=== PATIENT | female | born 1950 | race Two or more races ===

== ENCOUNTER 2018-10-20 08:30 | Day surgery (SDC) | payer MEDICARE, OTHER ==
[~2018-10-20] VITALS: Ht 162.6 cm; Wt 81.7 kg
[~2018-10-20 08:30] MED LIST: ATOR10 PO; CYCL10 PO; DIAZ5 PO; DOCU100 PO; ESCI20 PO; ESCITALOPRAM OX20 MG PO; GABA300 PO; GABA600 PO; HYDACE10B PO; HYDCOR2.5C PR; LOSA50 PO; LOSARTAN-HCTZ1 EACH PO; LOSHYD PO; Norco 10-325 T1 EACH PO; OMEPRAZOLE MAGN20 MG PO; TYLENOL PM; ZOLP10 PO
--- NOTE | 2018-10-20 09:43 | NUR ---
Ambulatory in Day Surgery WITH A LIMP AND HOLDING LLE STRAIGHT WITH. PT HAS METAL UP AND DOWN SPINE AND IN CRANIUM. SHE ALSO HAS METAL IN L KNEE AND R ANKLE. PT HAS FACIAL DROOP TO R SIDE OF FACE. PT STATES THEY DON'T KNOW IF SHE HAD A STROKE OR NOT, THE ONLY THING THAT BOTHERS HER IS TRYING TO KEEP HER MOUTH CLASED. PT STATES SHE DOESN'T FEEL LIKE SHE HAS A DISABILITY FROM IT. History, Chart, Medications and Allergies reviewed before start of procedure.Lungs clear T/O to Auscultation. Patient confirms NPO status and agrees with scheduled surgery. BELONGIGNS PLACED UNDER BED.
--- NOTE | 2018-10-20 10:25 | NUR ---
ASSUMED CARE OF PATIENT FOR TERI Jeronimo RN. SHAGGER REPORT COMPLETED AT BEDSIDE WITH INOCENTE MALLOY. PATIENT UP FOR UNMEASURED VOID.
--- NOTE | 2018-10-20 12:57 | NUR ---
Patient up to Ambulate independently. Gait steady. Patient States Post-Procedure ride home has been arranged. Discharge instructions reviewed with patient. Patient verbalizes understanding. Copy given to patient to take home. Discharged via wheelchair to private car for ride home.
== END 2018-10-20 23:59 | disposition home or self-care (01) ==
LOC: ORSCMMR 08:30 → ORD 10:00 → ORSCMMR 11:00
PROVIDERS: Surgery
PROC: 06BY0ZC Excision of Hemorrhoidal Plexus, Open Approach (ICD-10-PCS; principal; 2018-10-20 11:00)
DX: K64.2 Third degree hemorrhoids (principal); K64.4 Residual hemorrhoidal skin tags; I10 Essential (primary) hypertension; I25.10 Atherosclerotic heart disease of native coronary artery without angina pectoris; G47.33 Obstructive sleep apnea (adult) (pediatric); Z79.899 Other long term (current) drug therapy
CPT/HCPCS: 88304; J2250; J2405; J3010; J7120

== ENCOUNTER 2019-01-12 10:00 | Day surgery (SDC) | payer MEDICARE, OTHER ==
[~2019-01-12] VITALS: Ht 162.6 cm; Wt 85.8 kg
--- NOTE | 2019-01-12 10:37 | NUR ---
01/12/19 1037 Khushbu Alex BLOOD DRAWN AND ANTICOAG ADDED FOR PRP, DELIVERED TO OR TO BE SPUN.
--- NOTE | 2019-01-12 13:29 | NUR ---
01/12/19 1328 Bere Welsh BRUISE NOTED ON THE LEFT UPPER ARM AT THE LEVEL OF THE BICEPS
--- NOTE | 2019-01-12 16:17 | NUR ---
01/12/19 1617 Daina Parker 1615 REPORT TO [email or web address]
== END 2019-01-12 17:15 | disposition home or self-care (01) ==
LOC: ORSCSDS 10:00
PROVIDERS: Orthopaedic Surgery
PROC: 0RNK4ZZ Release Left Shoulder Joint, Percutaneous Endoscopic Approach (ICD-10-PCS; principal; 2019-01-12 11:45)
PROC: 0RBK4ZZ Excision of Left Shoulder Joint, Percutaneous Endoscopic Approach (ICD-10-PCS; principal; 2019-01-12 11:45)
PROC: 0PBB4ZZ Excision of Left Clavicle, Percutaneous Endoscopic Approach (ICD-10-PCS; principal; 2019-01-12 11:45)
PROC: 0LS24ZZ Reposition Left Shoulder Tendon, Percutaneous Endoscopic Approach (ICD-10-PCS; principal; 2019-01-12 11:45)
PROC: 0LQ24ZZ Repair Left Shoulder Tendon, Percutaneous Endoscopic Approach (ICD-10-PCS; principal; 2019-01-12 11:45)
DX: M75.122 Complete rotator cuff tear or rupture of left shoulder, not specified as traumatic (principal); M75.42 Impingement syndrome of left shoulder; M19.012 Primary osteoarthritis, left shoulder; M75.22 Bicipital tendinitis, left shoulder; I10 Essential (primary) hypertension; G47.33 Obstructive sleep apnea (adult) (pediatric); Z79.899 Other long term (current) drug therapy
CPT/HCPCS: C1713; J0171; J0330; J0690; J2250; J2370; J2704; J2795; J3010; J7120

== ENCOUNTER 2019-07-28 06:27 | Day surgery (SDC) | payer MEDICARE, OTHER ==
[~2019-07-28] VITALS: Ht 162.6 cm; Wt 84.0 kg
[~2019-07-28 06:27] MED LIST changes: +AMLO5 PO; +Isosorbide Mono30 MG PO; +NITR.4SL SL
--- NOTE | 2019-07-28 10:36 | NUR ---
Pt sleeping post medication administration. Right groin site tender. IV infusing at 100/hr, ns left forearm.
--- NOTE | 2019-07-28 11:00 | NUR ---
2 cc air removed from tr-band legs slightly elevated for groin pain. Pain 4-10 at this time.
--- NOTE | 2019-07-28 11:15 | NUR ---
day Avelar RN reveiwed sites.
--- NOTE | 2019-07-28 11:20 | NUR ---
ASSUMED CARE OF PT. PT IS ALERT AND ORIENTED, PLEASENT AND COOPERATIVE. PT REPORTS DISCOMFORT AT R RADIAL AND R GROIN SITE 3/10; BUT MUCH IMPROVED AFTER MEDICATION. PT DENIES SOB OR NAUSEA. MONITOR SB 50'S, B/P 128/60, SPO2 93% RA. R RADIAL SITE NO SWELLING/HEMATOMA, TR BAND IN PLACE. R GROIN SITE NO SWELLING/HEMATOMA, FRANCOIS DRSG C,D,I; RLE: 1+ PULSES X 2.
--- NOTE | 2019-07-28 12:05 | NUR ---
PT REPORTS SHE IS COMFORTABLE. TR BAND FULLY DEFLATED, R RADIAL SITE UNCHANGED. PT'S HOB ELEVATED, R GROIN SITE REMAINS UNCHANGED. PT'S HERE TO VISIT, ATTENTIVE.
--- NOTE | 2019-07-28 13:39 | NUR ---
PT AMB TO BATHROOM, GAIT STEADY. R RADIAL AND R GROIN STIE UNCHANGED AFTER ACTIVITY. REPORT TO INOCENTE LUCERO.
--- NOTE | 2019-07-28 14:50 | NUR ---
DISCHARGE PT REMAINED A&OX3 DURING RECOVERY AND STATED HER PAIN LEVEL WAS AT A TOLERABLE LEVEL WHEN LEAVING 12/11. R RADIAL SITE-TR BAND REMOVED WITH CLOTH DOT AND WHITE BOARD IN PLACE-CDI NO HEMATOMA NOTED. R GROIN SITE-CDI NO HEMATOMA NOTED. IV DC'D WITH TIP IN TACT. PT ABLE TO DRESS SELF WITH ASSISTANCE FROM SPOUSE. DISCHARGE PAPERWORK GONE OVER WITH PT AND SPOUSE. PT AND SPOUSE VERBALLY STATED THE UNDERSTANDING OF THE DISCHARGE EDUCATION AND DENIED ANY QUESTIONS AT THIS TIME. PT WHEELED OUT BY QUANG Cheema RN.
== END 2019-07-28 14:45 | disposition home or self-care (01) ==
LOC: MHTC 06:27
DX: I25.10 Atherosclerotic heart disease of native coronary artery without angina pectoris (principal); I10 Essential (primary) hypertension; E78.5 Hyperlipidemia, unspecified; G47.33 Obstructive sleep apnea (adult) (pediatric); Z91.030 Bee allergy status; Z79.899 Other long term (current) drug therapy
CPT/HCPCS: 93005; 93010; 93454; 99152; 99153; A9270-GY; C1769; C1894; J1644; J2250; J3010; J7030; Q9967

== ENCOUNTER 2020-09-12 12:39 | Day surgery (SDC) | payer MEDICARE, OTHER ==
[~2020-09-12] VITALS: Ht 162.6 cm; Wt 85.3 kg
[~2020-09-12 12:39] MED LIST changes: +ALBU90OI INH; +ASPI81CH PO; +ASPIR 8181 M1 PO; +HAIR, SKIN AND1 EAC3 PO; +Imdur-ER60 MG PO; +OXYC5 PO; +PANT40 PO; +PROM25 PO; +TELM40 PO; +TIZA4 PO; +XOPENEX HFA15 GM INH
== END 2020-09-12 14:20 | disposition home or self-care (01) ==
LOC: ORSCSDS 12:39
DX: K21.9 Gastro-esophageal reflux disease without esophagitis (principal); I10 Essential (primary) hypertension; I25.10 Atherosclerotic heart disease of native coronary artery without angina pectoris; F32.9 Major depressive disorder, single episode, unspecified; G47.33 Obstructive sleep apnea (adult) (pediatric); J45.909 Unspecified asthma, uncomplicated; Z79.82 Long term (current) use of aspirin; Z79.899 Other long term (current) drug therapy
CPT/HCPCS: 88305; 88342; J2704; J7120

== ENCOUNTER → 2022-02-25 | Outpatient (CLI) | payer MEDICARE, OTHER ==
[~2022-02-25] MED LIST changes: +AMOCLA875 PO
== END | disposition home or self-care (01) ==
LOC: LAB 08:14 → LAB SHORT 08:14
DX: C44.311 Basal cell carcinoma of skin of nose (principal)
CPT/HCPCS: 88305

== ENCOUNTER 2022-07-20 08:30 | Day surgery (SDC) | payer MEDICARE, OTHER ==
[~2022-07-20] VITALS: Ht 162.6 cm; Wt 88.8 kg
[~2022-07-20 08:30] MED LIST changes: +Lipitor10 MG PO; +MELO7.5 PO
--- NOTE | 2022-07-20 17:55 | NUR ---
SHIFT SUMMARY S/P R PAMELA PATIENT [id number], PAINFUL ON ARRIVAL MEDICATED PER EMAR, PT REPORTS PAIN GREATLY IMPROVED. SHE IS CURRENTLY SITTING UP IN BED EATING DINNER. PT IS CURRENTLY AMBULATING TO THE BATHROOM WITH FWW AND GB. FULL SENSATION IN EXTREMETIES. PLAN IS TO WORK WITH THERAPY IN THE MORNING.
[2022-07-21 04:52] LABS: BASOPHILS ABSOLUTE AUTO 0.01 K/mm3 (0.00-0.23); BASOPHILS PERCENT AUTO 0 % (0-2); EOSINOPHILS PERCENT AUTO 0 % (0-6); Hematocrit 28.4 % (33.0-51.0); Hemoglobin 9.5 g/dL (11.5-16.0); IMMATURE GRAN ABSOLUTE AUTO 0.09 K/mm3 (0.00-0.10); IMMATURE GRAN PERCENT AUTO 1 % (0-1); LYMPHOCYTES ABSOLUTE AUTO 1.81 K/mm3 (0.84-5.20); LYMPHOCYTES PERCENT AUTO 13 % (21-46); MONOCYTES ABSOLUTE AUTO 1.13 K/mm3 (0.16-1.47); MONOCYTES PERCENT AUTO 8 % (4-13); Mean Corpuscular HGB 30.1 pg (26.0-34.0); Mean Corpuscular HGB Conc 33.5 g/dL (31.5-36.5); Mean Corpuscular Volume 90 fL (80-100); Mean Platelet Volume 10.8 fL (9.1-12.4); NEUTROPHILS ABSOLUTE AUTO 11.27 K/mm3 (1.96-9.15); NEUTROPHILS PERCENT AUTO 79 % (41-73); Platelet Count 199 K/mm3 (150-400); RDW Coefficient Variation 13.6 % (11.7-14.2); RDW Standard Deviation 44.7 fL (35.1-46.3); Red Blood Cell Count 3.16 M/mm3 (3.80-5.20); White Blood Cell Count 14.31 K/mm3 (4.00-11.30)
--- NOTE | 2022-07-21 05:04 | NUR ---
POD1 FOR A RIGHT TOTAL HIP. SENSATION AND CIRCULATION IS IN TACT. PRIMEO DRESSING IS C/D/I. VSS. PT SLEPT WELL T/O THE NIGHT. AMBULATED TO THE BATHROOM MULTIPLE TIMES T/O THE SHIFT TO VOID. NOT PASSING FLATTUS BUT TOLLERATING PO INTAKE. PAIN CONTROLLED WITH OXY AND SCHEDULED MEDICATIONS. PLAN FOR PT TO WORK WITH PT TODAY BEFORE D/C HOME. 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
[2022-07-21 05:45] LABS: Bun/Creatinine Ratio 21.7 (12.0-20.0); Calcium, Blood 8.4 mg/dL (8.5-10.1); Creatinine, Blood 0.65 mg/dL (0.40-1.00)
[2022-07-21] MEDS ORDERED: ACET500 PO (11:17)
[2022-07-21] MEDS ORDERED: ROXICODONE5 MG PO (11:18)
--- NOTE | 2022-07-21 13:04 | NUR ---
DISCHARGE SUMMARY PT POD #1 FOR R TOTAL HIP. SOME DRAINAGE NOTED ON PRINEO DRESSING AND AQUACEL APPLIED OVER TOP. AQUACEL CDI. TREATED FOR PAIN PER EMR. DC'D HOME WITH .
== END 2022-07-21 13:01 | disposition home or self-care (01) ==
LOC: ORSCMMR 08:30 → ORD 10:45 → ORSCMMR 10:45 → SURS 15:07 → ORSCMMR 07-21 13:01
PROVIDERS: Orthopaedic Surgery
PROC: 0SR90JA Replacement of Right Hip Joint with Synthetic Substitute, Uncemented, Open Approach (ICD-10-PCS; principal; 2022-07-20 10:45)
DX: M16.11 Unilateral primary osteoarthritis, right hip (principal); M87.9 Osteonecrosis, unspecified; I10 Essential (primary) hypertension; E78.5 Hyperlipidemia, unspecified; I25.10 Atherosclerotic heart disease of native coronary artery without angina pectoris; G47.33 Obstructive sleep apnea (adult) (pediatric); Z79.899 Other long term (current) drug therapy; Z79.82 Long term (current) use of aspirin; E66.9 Obesity, unspecified; Z68.33 Body mass index [BMI] 33.0-33.9, adult
CPT/HCPCS: 36415; 72170; 80048; 83735; 85025; 97110; 97116; 97162; 97530; A9270; C1776; J0171; J0690; J0735; J1100; J1885; J2250; J2370; J2405; J2704; J2795; J3010; J7120

== ENCOUNTER 2022-11-27 10:23 | Day surgery (SDC) | payer MEDICARE, OTHER ==
[~2022-11-27] VITALS: Ht 162.6 cm; Wt 89.0 kg
[~2022-11-27 10:23] MED LIST changes: +ACET500 PO; +ROXICODONE5 MG PO
--- NOTE | 2022-11-27 12:44 | NUR ---
11/27/22 Nataliya4 Zoey Kee PO BICITRA GIVEN PER ANESTHESIA ORDERS
--- NOTE | 2022-11-27 13:09 | NUR ---
11/27/22 1309 Theresa Garcia ROPIVACAINE 0.5% 20 MLS MIXED W/ EPI 0.1ML (1MG/ML) PER ORDER TO MAKE ROPIVACAINE 0.5% 1:200,000 FOR INJECTION AT [facility].
--- NOTE | 2022-11-27 14:53 | NUR ---
11/27/22 1453 Steve Quiñonez SPO2 DROPPING INTO 80S LOW 90S. PT PLACED ON 15L O2 VIA FT. SPO2 BACK UP TO 100%. TRIAL ON 10L AND PT STAYED AT 100%. NOW TRIAL AT 5L.
== END 2022-11-27 17:10 | disposition home or self-care (01) ==
LOC: ORSCSDS 10:23
PROVIDERS: Podiatrist Foot & Ankle Surgery
PROC: 0SGN04Z Fusion of Left Metatarsal-Phalangeal Joint with Internal Fixation Device, Open Approach (ICD-10-PCS; principal; 2022-11-27 12:00)
PROC: 0Q8P0ZZ Division of Left Metatarsal, Open Approach (ICD-10-PCS; principal; 2022-11-27 12:00)
DX: M20.12 Hallux valgus (acquired), left foot (principal); M77.42 Metatarsalgia, left foot; I10 Essential (primary) hypertension; I25.10 Atherosclerotic heart disease of native coronary artery without angina pectoris; G47.33 Obstructive sleep apnea (adult) (pediatric); K21.9 Gastro-esophageal reflux disease without esophagitis; F32.A Depression, unspecified; E66.9 Obesity, unspecified; Z68.34 Body mass index [BMI] 34.0-34.9, adult; E78.00 Pure hypercholesterolemia, unspecified; Z79.899 Other long term (current) drug therapy
CPT/HCPCS: 71045; A9270; C1713; J0171; J0690; J1100; J2001; J2370; J2405; J2704; J2795; J3010; J7120

== ENCOUNTER 2023-05-19 07:11 | Day surgery (SDC) | payer MEDICARE, OTHER | END 2023-05-19 22:45 | disposition home or self-care (01) | LOC: CT 07:11 | DX: R07.89 Other chest pain (principal); R06.02 Shortness of breath; R00.2 Palpitations | CPT/HCPCS: 75574; Q9967 ==

== ENCOUNTER 2024-09-23 10:52 | Emergency (ER) | payer MEDICARE, OTHER ==
[~2024-09-23] VITALS: Ht 162.6 cm; Wt 83.0 kg
[2024-09-23] MEDS ORDERED: ZOLPIDEM TARTRA10 MG PO (12:03)
[2024-09-23] MEDS ORDERED: METOPROLOL SUCC25 MG PO (12:03)
[2024-09-23] MEDS ORDERED: LOSA50 PO (12:04)
[2024-09-23] MEDS ORDERED: TRAZ50 PO (12:04)
[2024-09-23 12:18] LABS: BASOPHILS ABSOLUTE AUTO 0.03 K/mm3 (0.00-0.23); BASOPHILS PERCENT AUTO 0 % (0-2); EOSINOPHILS ABSOLUTE AUTO 0.23 K/mm3 (0.00-0.68); EOSINOPHILS PERCENT AUTO 3 % (0-6); Hematocrit 36.2 % (33.0-51.0); Hemoglobin 11.4 g/dL (11.5-16.0); IMMATURE GRAN ABSOLUTE AUTO 0.03 K/mm3 (0.00-0.10); IMMATURE GRAN PERCENT AUTO 0 % (0-1); LYMPHOCYTES ABSOLUTE AUTO 2.02 K/mm3 (0.84-5.20); LYMPHOCYTES PERCENT AUTO 24 % (21-46); MONOCYTES ABSOLUTE AUTO 0.71 K/mm3 (0.16-1.47); MONOCYTES PERCENT AUTO 8 % (4-13); Mean Corpuscular HGB 24.8 pg (26.0-34.0); Mean Corpuscular HGB Conc 31.5 g/dL (31.5-36.5); Mean Corpuscular Volume 79 fL (80-100); Mean Platelet Volume 10.3 fL (9.1-12.4); NEUTROPHILS ABSOLUTE AUTO 5.46 K/mm3 (1.96-9.15); NEUTROPHILS PERCENT AUTO 64 % (41-73); Platelet Count 288 K/mm3 (150-400); RDW Coefficient Variation 19.3 % (11.7-14.2); RDW Standard Deviation 54.7 fL (35.1-46.3); White Blood Cell Count 8.48 K/mm3 (4.00-11.30)
[2024-09-23] MEDS ORDERED: Ondansetron HCl 2 MG / ML 2ML Vial IV ONE (12:25)
[2024-09-23] MEDS ORDERED: Morphine Sulfate 4 MG/1 ML Injection IV ONE (12:25)
[2024-09-23 12:39] LABS: Albumin, Blood 3.9 g/dL (3.4-5.0); Albumin/Globulin Ratio 0.9 (0.8-1.8); Bilirubin, Total 0.4 mg/dL (0.1-1.0); Bun/Creatinine Ratio 16.7 (12.0-20.0); Calcium, Blood 9.5 mg/dL (8.5-10.1); Creatinine, Blood 0.66 mg/dL (0.40-1.00); Globulin, Blood 4.4 g/dL (2.2-4.0); Potassium, Blood 3.6 mmol/L (3.5-5.5); Total Protein, Blood 8.3 g/dL (6.4-8.2)
[2024-09-23 13:00] LABS: Source, Urine Clean Catch
[2024-09-23 13:09] LABS: Appearance, Urine Clear (Clear); Bilirubin, Urine Neg (Neg); Blood, Urine Neg (Neg); Color, Urine Yellow (P-Yellow); Glucose Qualitative, Urine Neg (Neg); Ketones, Urine Neg (Neg); Leukocyte Esterase, Urine 1+ (Neg); Nitrite, Urine Neg (Neg); Protein, Urine Neg (Neg); Specific Gravity, Urine 1.005 (1.003-1.022); Urobilinogen, Urine NORM (Normal)
[2024-09-23 13:22] LABS: Bacteria Few /hpf; Red Blood Cells, Urine Not Seen /hpf (0-2); Squamous Epithelial Cells Rare /hpf (Few); White Blood Cells, Urine 0-2 /hpf (0-5)
[2024-09-23] MEDS ORDERED: HYDROCODONE-AC1 EA10 PO (14:19)
[2024-09-23 14:20] VITALS: BP 156/97
== END 2024-09-23 14:50 | disposition home or self-care (01) ==
LOC: ER 10:52
PROVIDERS: Student in an Organized Health Care Education/Training Program
DX: R10.11 Right upper quadrant pain (principal); M54.10 Radiculopathy, site unspecified; K21.9 Gastro-esophageal reflux disease without esophagitis; Z91.030 Bee allergy status; Z79.82 Long term (current) use of aspirin; Z79.899 Other long term (current) drug therapy; Z96.652 Presence of left artificial knee joint; Z87.891 Personal history of nicotine dependence; Z96.641 Presence of right artificial hip joint
CPT/HCPCS: 74177; 80053; 81001; 83690; 84484; 85025; 87086; 93005; 93010; 96374-59; 96375; 99284-25; J2270; J2405; Q9967

== ENCOUNTER 2024-11-23 23:45 | Emergency (ER) | payer MEDICARE, OTHER ==
[~2024-11-23] VITALS: Ht 162.6 cm; Wt 83.9 kg
[~2024-11-23 23:45] MED LIST changes: +HYDROCODONE-AC1 EA10 PO; +METOPROLOL SUCC25 MG PO; +TRAZ50 PO; +ZOLPIDEM TARTRA10 MG PO
[2024-11-24 01:09] LABS: CORONAVIRUS COVID-19 AG Negative (NEGATIVE); INFLUENZA A AG Positive (NEGATIVE); INFLUENZA B AG Negative (NEGATIVE)
[2024-11-24 01:11] LABS: BASOPHILS ABSOLUTE AUTO 0.03 K/mm3 (0.00-0.23); BASOPHILS PERCENT AUTO 0 % (0-2); EOSINOPHILS ABSOLUTE AUTO 0.15 K/mm3 (0.00-0.68); EOSINOPHILS PERCENT AUTO 2 % (0-6); Hematocrit 36.4 % (33.0-51.0); Hemoglobin 11.5 g/dL (11.5-16.0); IMMATURE GRAN ABSOLUTE AUTO 0.03 K/mm3 (0.00-0.10); IMMATURE GRAN PERCENT AUTO 0 % (0-1); LYMPHOCYTES ABSOLUTE AUTO 1.05 K/mm3 (0.84-5.20); LYMPHOCYTES PERCENT AUTO 13 % (21-46); MONOCYTES ABSOLUTE AUTO 0.58 K/mm3 (0.16-1.47); MONOCYTES PERCENT AUTO 7 % (4-13); Mean Corpuscular HGB 25.5 pg (26.0-34.0); Mean Corpuscular HGB Conc 31.6 g/dL (31.5-36.5); Mean Corpuscular Volume 81 fL (80-100); NEUTROPHILS PERCENT AUTO 77 % (41-73); NRBC ABSOLUTE 0.02 K/mm3 (0.00-0.02); NRBC Auto 0.2 /100 WBC (0.0-0.2); RDW Coefficient Variation 18.1 % (11.7-14.2); RDW Standard Deviation 52.5 fL (35.1-46.3); Red Blood Cell Count 4.51 M/mm3 (3.80-5.20); White Blood Cell Count 8.04 K/mm3 (4.00-11.30)
[2024-11-24 01:15] LABS: Albumin, Blood 3.8 g/dL (3.4-5.0); Albumin/Globulin Ratio 0.9 (0.8-1.8); Bilirubin, Total 0.4 mg/dL (0.1-1.0); Bun/Creatinine Ratio 20.1 (12.0-20.0); Calcium, Blood 9.2 mg/dL (8.5-10.1); Creatinine, Blood 0.7 mg/dL (0.40-1.00); Globulin, Blood 4.3 g/dL (2.2-4.0); Potassium, Blood 3.2 mmol/L (3.5-5.5); Total Protein, Blood 8.1 g/dL (6.4-8.2)
[2024-11-24 01:53] LABS: Platelet Count 230 K/mm3 (150-400)
[2024-11-24 03:17] LABS: Source, Urine Clean Catch
[2024-11-24 03:20] LABS: Bilirubin, Urine Neg (Neg); Blood, Urine Neg (Neg); Glucose Qualitative, Urine Neg (Neg); Ketones, Urine Neg (Neg); Leukocyte Esterase, Urine Neg (Neg); Nitrite, Urine Neg (Neg); Protein, Urine 1+ (Neg); Specific Gravity, Urine 1.015 (1.003-1.022); Urobilinogen, Urine NORM (Normal)
[2024-11-24 03:29] LABS: Appearance, Urine Clear (Clear); Color, Urine Yellow (P-Yellow)
[2024-11-24] MEDS ORDERED: Ipratropium/Albuterol SulF 2.5-0.5MG/3 ML Amp INH ONE (04:35)
[2024-11-24] MEDS ORDERED: Azithromycin 500 MG in NS 250 ML IV ONE (04:35)
[2024-11-24] MEDS ORDERED: CefTRIAXone Sodium 1,000 MG in NS 50 ML IV ONE (04:35)
[2024-11-24] MEDS ORDERED: AZIT250 PO (04:37)
[2024-11-24] MEDS ORDERED: Potassium Chloride 20 MEQ TabCR PO ONE (04:40)
[2024-11-24 06:54] VITALS: BP 130/79
== END 2024-11-24 06:54 | disposition home or self-care (01) ==
LOC: ER 23:45
PROVIDERS: Physician Assistant
DX: J10.00 Influenza due to other identified influenza virus with unspecified type of pneumonia (principal); K21.9 Gastro-esophageal reflux disease without esophagitis; Z87.891 Personal history of nicotine dependence; Z79.899 Other long term (current) drug therapy; Z91.030 Bee allergy status
CPT/HCPCS: 71046; 80053; 85025; 87428-QW; 94640; 94664; 96365; 96375; 99285-25; A9270; J0456; J0696; J7050